=== PATIENT | male | born 2000 | race Caucasian/White ===

== ENCOUNTER 2019-01-19 17:16 | Emergency (ER) | payer OTHER ==
[~2019-01-19] VITALS: Ht 195.6 cm; Wt 83.5 kg
[2019-01-19 17:35] VITALS: Ht 195.6 cm; Wt 83.5 kg
[2019-01-19 22:09] VITALS: BP 128/76
== END 2019-01-19 22:09 | disposition home or self-care (01) ==
LOC: ED 17:16
DX: S62.624A Displaced fracture of middle phalanx of right ring finger, initial encounter for closed fracture (principal); S62.626A Displaced fracture of middle phalanx of right little finger, initial encounter for closed fracture; W22.8XXA Striking against or struck by other objects, initial encounter; Y93.89 Activity, other specified; Y92.89 Other specified places as the place of occurrence of the external cause; Y99.8 Other external cause status
CPT/HCPCS: J1885; J2001